=== PATIENT | male | born 1980 | race Caucasian/White ===

== ENCOUNTER 2020-02-25 22:40 | Inpatient (IN) | payer BC ==
[~2020-02-25] VITALS: Ht 170.2 cm; Wt 119.2 kg
--- NOTE | 2020-02-25 22:57 | NUR ---
PT WAS TRANSFERED FROM [facility] AFTER PT WENT TO ER FOR N/V AND ABD PAIN. PT IS A HEAVY DRINKER WITH LAST DRINK YESTERDAY. FLIGHT CREW SAID "PT B/S WAS 365 AT ER AND THAT PT IS BEING TRAFERED TO ER FOR PANCREATITIS AND DKA". PT A//OX 4
[2020-02-25] MEDS ORDERED: REGULAR INSULIN 100 UNITS in SODIUM CHLORIDE 0.9% 99 ML IV PRN (23:00)
[2020-02-25] MEDS ORDERED: SODIUM CHLORIDE 0.9% 1,000ML IVBOLUS ONE (23:00)
[2020-02-25] MEDS ORDERED: MAGNESIUM SULFATE 1 GM, THIAMINE 100 MG, FOLIC ACID 1 MG, MVI ADULT 10 ML in SODIUM CHL... IV ONE (23:00)
[2020-02-25 23:24] LABS: MEAN CORPUSCULAR HEMOGLOBIN 28.6 pg (27.5-34.5); MEAN CORPUSCULAR HGB CONC 31.7 g/dL (33.2-36.2); MEAN PLATELET VOLUME 9.2 fL (7.4-10.4); PLATELET COUNT 296 x10^3/uL (130-400); RED BLOOD COUNT 5.78 x10^6/uL (4.38-5.82); RED CELL DISTRIBUTION WIDTH 15.7 % (9.4-14.8)
[2020-02-25] MEDS ORDERED: PLEASE ENTER ALLERGIES MC SCH (23:30)
[2020-02-25 23:38] LABS: ALBUMIN 3.5 g/dL (3.4-5.0); ANION GAP 27 mmol/L (5-15); CALCIUM 8.7 mg/dL (8.5-10.1); CHLORIDE 97 mmol/L (98-107); CREATININE 1.38 mg/dL (0.7-1.3)
[2020-02-25 23:47] LABS: ALANINE AMINOTRANSFERASE 89 U/L (12-78); ALKALINE PHOSPHATASE 93 U/L (45-117); BILIRUBIN,TOTAL 0.7 mg/dL (0.2-1.0)
[2020-02-26] MEDS ORDERED: DOCUSATE 100 MG CAPSULE PO PRN
[2020-02-26] MEDS ORDERED: REGULAR INSULIN 100 UNITS in SODIUM CHLORIDE 0.9% 99 ML IV PRN
[2020-02-26] MEDS ORDERED: ONDANSETRON 2MG/ML, 2ML IVPush PRN
[2020-02-26] MEDS ORDERED: morphine SULFATE 10 MG/ML, 1ML IVPush PRN
[2020-02-26] MEDS ORDERED: SODIUM CHLORIDE 0.9% 1,000ML IVBOLUS ONE
[2020-02-26] MEDS ORDERED: LORazepam 2 MG/ML, 1ML IVPush ONE
[2020-02-26 00:01] LABS: MD YES
[2020-02-26 00:04] LABS: ANISOCYTOSIS 1+; BAND#(MANUAL) 0.89 x10^3/uL; BANDS%(MANUAL) 5 % (0-7); BASOS#(MANUAL) 0.18 x10^3/uL (0-0.1); BASOS% (MANUAL) 1 % (0-1); LYMPH#(MANUAL) 0.36 x10^3/uL (1-3.4); LYMPHS% (MANUAL) 2 % (22-44); MONOS#(MANUAL) 0.71 x10^3/uL (0.3-2.7); MONOS% (MANUAL) 4 % (2-9); POLYCHROMASIA 1+; SEG#(MANUAL) 15.66 x10^3/uL (1.8-6.8); SEGS% (MANUAL) 88 % (42-75)
[2020-02-26 00:05] LABS: <PLATELET ESTIMATE> ADEQUATE; LARGE PLATELETS 1+
[2020-02-26 00:14] LABS: ACETONE, SERUM Large (80mg/dL) (Negative)
[2020-02-26] MEDS ORDERED: LORazepam 2 MG/ML, 1ML IV PRN ×5 (00:30)
[2020-02-26] MEDS ORDERED: SODIUM BICARB 8.4%, 50ML SYRINGE IVPush ONE (00:30)
[2020-02-26] MEDS ORDERED: SODIUM BICARB 8.4%, 50ML SYRINGE ONE (00:38)
[2020-02-26] MEDS ORDERED: NICOTINE 14MG/24 HR PATCH.TD24 ONE (00:38)
[2020-02-26] MEDS ORDERED: LORazepam 2 MG/ML, 1ML ONE ×2 (00:39→08:34)
[2020-02-26] MEDS: NICOTINE 14MG/24 HR PATCH.TD24 TD SCH (00:46)
[2020-02-26] MEDS ORDERED: LABETALOL 5MG/ML, 20ML ONE (00:48)
[2020-02-26] MEDS: LABETALOL 5MG/ML, 20ML IVPush PRN ×4 (00:50→20:20)
--- NOTE | 2020-02-26 00:59 | NUR ---
PT RESTING IN BED, PT HYPERTENSIVE, PT MEDICATED PER EMAR. PT ON MONITOR, PT VSS.
[2020-02-26] MEDS ORDERED: MORPHINE SULFATE 4 MG/ML, 1ML ONE (01:09)
--- NOTE | 2020-02-26 01:55 | NUR ---
TASK RN: VS UPDATED; PT. PROVIDED WITH MOUTH SWABS PER REQUEST.
--- NOTE | 2020-02-26 04:57 | NUR ---
PT RESTING IN BED, PT MEDICATED PER EMAR. PT ON MONITOR WITH PT VSS
[2020-02-26 05:27] LABS: ANION GAP 23 mmol/L (5-15); CHLORIDE 111 mmol/L (98-107); CREATININE 1.35 mg/dL (0.7-1.3)
[2020-02-26] MEDS: D5%-0.45NACL+KCL 20MEQ 1,000 ML IV SCH ×3 (06:14→19:56)
--- NOTE | 2020-02-26 06:21 | NUR ---
PT RESTING IN BED, PT BLOOD SUGAR 178, PT INSULIN DECREASED AND D5 FLUIDS STARTED. PT ON MONITOR WITH VSS. PT MEDICATED PER MAR
[2020-02-26 06:34] LABS: MICROSCOPIC INDICATED
[2020-02-26] MEDS ORDERED: LORazepam 2 MG/ML, 1ML IVPush PRN (07:30)
[2020-02-26] MEDS: SODIUM CHLORIDE 0.9% 1,000 ML IV SCH ×5 (08:06→19:56)
--- NOTE | 2020-02-26 08:32 | NUR ---
Took report from [facility]. Pt resting in bed calm. checked bs, and gave fluids. no requests at this time.
[2020-02-26] MEDS ORDERED: CHLORDIAZEPOXIDE 25 MG CAPSULE ONE (08:34)
[2020-02-26] MEDS: CHLORDIAZEPOXIDE 25 MG CAPSULE PO SCH ×3 (08:37→20:03)
[2020-02-26] MEDS ORDERED: FAMOTIDINE 20 MG/2 ML IVPush SCH (09:00)
[2020-02-26 09:13] LABS: ANION GAP 13 mmol/L (5-15); CALCIUM 7.7 mg/dL (8.5-10.1); CHLORIDE 115 mmol/L (98-107); CREATININE 1.43 mg/dL (0.7-1.3)
[2020-02-26 12:46] VITALS: BP 149/84
[2020-02-26] MEDS: HYDROcodone/APAP 5/325 TABLET PO PRN ×2 (13:14→19:43)
[2020-02-26 13:26] LABS: ANION GAP 18 mmol/L (5-15); CALCIUM 7.9 mg/dL (8.5-10.1); CHLORIDE 115 mmol/L (98-107); CREATININE 1.28 mg/dL (0.7-1.3)
[2020-02-26] MEDS ORDERED: QUET50TA5 PO (15:25)
[2020-02-26] MEDS ORDERED: METF-734 PO (15:25)
[2020-02-26] MEDS ORDERED: OMEP20CA20 PO (15:25)
[2020-02-26] MEDS ORDERED: MELO15TA24 PO (15:25)
[2020-02-26] MEDS ORDERED: ACAM333T7 PO (15:25)
[2020-02-26] MEDS ORDERED: ROSU10TA26 PO (15:25)
[2020-02-26] MEDS ORDERED: SITA100T PO (15:25)
[2020-02-26] MEDS ORDERED: CLON0.5T20 PO (15:25)
[2020-02-26 16:35] VITALS: BP 190/100
[2020-02-26 17:30] LABS: ANION GAP 12 mmol/L (5-15); CHLORIDE 115 mmol/L (98-107); CREATININE 1.27 mg/dL (0.7-1.3)
[2020-02-26 21:14] LABS: ANION GAP 9 mmol/L (5-15); CALCIUM 8.1 mg/dL (8.5-10.1); CHLORIDE 111 mmol/L (98-107); CREATININE 1.12 mg/dL (0.7-1.3)
[2020-02-27 01:33] LABS: ANION GAP 7 mmol/L (5-15); CALCIUM 8.3 mg/dL (8.5-10.1); CHLORIDE 111 mmol/L (98-107); CREATININE 0.99 mg/dL (0.7-1.3)
[2020-02-27] MEDS: D5%-0.45NACL+KCL 20MEQ 1,000 ML IV SCH (04:53)
[2020-02-27 05:04] LABS: BASOPHILS % (AUTO) 0 % (0-1); EOSINOPHILS % (AUTO) 1 % (1-7); LYMPHOCYTES % (AUTO) 17 % (22-44); MEAN CORPUSCULAR HEMOGLOBIN 28.8 pg (27.5-34.5); MEAN CORPUSCULAR HGB CONC 33.1 g/dL (33.2-36.2); MEAN PLATELET VOLUME 8.7 fL (7.4-10.4); MONOCYTES % (AUTO) 7 % (2-9); NEUTROPHILS % (AUTO) 75 % (42-75); PLATELET COUNT 176 x10^3/uL (130-400); RED BLOOD COUNT 4.78 x10^6/uL (4.38-5.82); RED CELL DISTRIBUTION WIDTH 15.7 % (9.4-14.8)
[2020-02-27 05:10] LABS: ALANINE AMINOTRANSFERASE 45 U/L (12-78); ALBUMIN 2.7 g/dL (3.4-5.0); ANION GAP 9 mmol/L (5-15); CALCIUM 8.6 mg/dL (8.5-10.1); CHLORIDE 111 mmol/L (98-107); CREATININE 0.93 mg/dL (0.7-1.3)
[2020-02-27 05:12] LABS: ALKALINE PHOSPHATASE 50 U/L (45-117); BILIRUBIN,TOTAL 0.6 mg/dL (0.2-1.0); TOTAL PROTEIN 6.4 g/dL (6.4-8.2)
[2020-02-27 05:28] LABS: MD NO
[2020-02-27] MEDS: HYDROcodone/APAP 5/325 TABLET PO PRN ×5 (06:26→20:11)
[2020-02-27] MEDS ORDERED: SODIUM PHOSPHATE 40 MMOL in SODIUM CHLORIDE 0.9% 500 ML IV ONE (07:00)
[2020-02-27] MEDS ORDERED: POTASSIUM CHLORIDE 20 MEQ, MAGNESIUM SULFATE 1 GM, THIAMINE 200 MG, FOLIC ACID 1 MG, MV... IV SCH (07:00)
[2020-02-27] MEDS: POTASSIUM CHLORIDE 20 MEQ, MAGNESIUM SULFATE 1 GM, THIAMINE 200 MG, FOLIC ACID 1 MG, MV... IV SCH (07:23)
[2020-02-27] MEDS: INSULIN GLARGINE 100 UNITS/ML, PEN SQ-INSULIN SCH ×2 (07:30→20:25)
[2020-02-27] MEDS ORDERED: LORazepam 2 MG/ML, 1ML IVPush PRN (07:30)
[2020-02-27] MEDS: POTASSIUM CHLORIDE 20 MEQ TAB.ER.PRT PO SCH ×2 (08:00→16:00)
[2020-02-27] MEDS: INSULIN LISPRO 100 UNITS/ML, PEN SQ-INSULIN SCH ×4 (08:37→20:26)
[2020-02-27 09:46] LABS: ANION GAP 6 mmol/L (5-15); CALCIUM 8.4 mg/dL (8.5-10.1); CHLORIDE 109 mmol/L (98-107); CREATININE 0.83 mg/dL (0.7-1.3)
[2020-02-27] MEDS: CHLORDIAZEPOXIDE 25 MG CAPSULE PO SCH ×3 (10:17→20:10)
[2020-02-27] MEDS: NICOTINE 14MG/24 HR PATCH.TD24 TD SCH (10:17)
[2020-02-27 11:00] VITALS: BP 146/105
[2020-02-27 13:27] VITALS: BP 162/97
[2020-02-27 13:47] LABS: ANION GAP 13 mmol/L (5-15); CALCIUM 8.7 mg/dL (8.5-10.1); CHLORIDE 108 mmol/L (98-107)
[2020-02-27 18:19] LABS: ANION GAP 12 mmol/L (5-15); CALCIUM 8.7 mg/dL (8.5-10.1); CHLORIDE 107 mmol/L (98-107)
[2020-02-27 18:21] LABS: CREATININE 0.76 mg/dL (0.7-1.3)
[2020-02-27 20:23] VITALS: BP 163/95
[2020-02-27 21:51] LABS: ANION GAP 10 mmol/L (5-15); CALCIUM 8.7 mg/dL (8.5-10.1); CHLORIDE 107 mmol/L (98-107); CREATININE 0.83 mg/dL (0.7-1.3)
[2020-02-28] MEDS: HYDROcodone/APAP 5/325 TABLET PO PRN ×2 (01:01→09:37)
[2020-02-28 03:25] VITALS: BP 162/93
[2020-02-28 04:37] LABS: ALBUMIN 2.5 g/dL (3.4-5.0); ANION GAP 9 mmol/L (5-15); CALCIUM 8.4 mg/dL (8.5-10.1); CHLORIDE 107 mmol/L (98-107)
[2020-02-28 04:41] LABS: ALANINE AMINOTRANSFERASE 42 U/L (12-78); ALKALINE PHOSPHATASE 49 U/L (45-117); BILIRUBIN,TOTAL 0.5 mg/dL (0.2-1.0); CREATININE 0.72 mg/dL (0.7-1.3); TOTAL PROTEIN 6.1 g/dL (6.4-8.2)
[2020-02-28 07:17] VITALS: BP 156/97
[2020-02-28] MEDS: CHLORDIAZEPOXIDE 25 MG CAPSULE PO SCH (07:26)
[2020-02-28] MEDS: NICOTINE 14MG/24 HR PATCH.TD24 TD SCH (07:26)
[2020-02-28] MEDS: POTASSIUM CHLORIDE 20 MEQ, MAGNESIUM SULFATE 1 GM, THIAMINE 200 MG, FOLIC ACID 1 MG, MV... IV SCH (07:26)
[2020-02-28] MEDS: INSULIN GLARGINE 100 UNITS/ML, PEN SQ-INSULIN SCH ×2 (07:27→20:06)
[2020-02-28] MEDS: INSULIN LISPRO 100 UNITS/ML, PEN SQ-INSULIN SCH ×4 (07:28→20:06)
[2020-02-28 12:46] VITALS: BP 165/98
[2020-02-28] MEDS ORDERED: CHLORDIAZEPOXIDE 25 MG CAPSULE PO SCH ×2 (15:00)
[2020-02-28] MEDS ORDERED: CHLORDIAZEPOXIDE 10 MG CAPSULE PO PRN (15:00)
[2020-02-28] MEDS ORDERED: CHLORDIAZEPOXIDE 25 MG CAPSULE PO PRN ×3 (15:00)
[2020-02-28] MEDS ORDERED: LORazepam 2 MG/ML, 1ML IV PRN (15:00)
[2020-02-28] MEDS: IBUPROFEN 200 MG TABLET PO PRN (16:44)
[2020-02-28 21:00] VITALS: BP 141/87
[2020-02-29 01:24] VITALS: BP 106/100
[2020-02-29 03:37] LABS: BASOPHILS % (AUTO) 1 % (0-1); EOSINOPHILS % (AUTO) 2 % (1-7); LYMPHOCYTES % (AUTO) 26 % (22-44); MEAN CORPUSCULAR HEMOGLOBIN 28.2 pg (27.5-34.5); MEAN PLATELET VOLUME 8.7 fL (7.4-10.4); MONOCYTES % (AUTO) 8 % (2-9); NEUTROPHILS % (AUTO) 64 % (42-75); PLATELET COUNT 200 x10^3/uL (130-400); RED BLOOD COUNT 4.22 x10^6/uL (4.38-5.82); RED CELL DISTRIBUTION WIDTH 16.3 % (9.4-14.8)
[2020-02-29 03:48] LABS: ANION GAP 8 mmol/L (5-15); CALCIUM 8.7 mg/dL (8.5-10.1); CHLORIDE 103 mmol/L (98-107); CREATININE 0.63 mg/dL (0.7-1.3)
[2020-02-29 04:18] LABS: MD SCAN
[2020-02-29] MEDS ORDERED: INSULIN GLARGINE 100 UNITS/ML, PEN SQ-INSULIN SCH (07:00)
[2020-02-29] MEDS: INSULIN LISPRO 100 UNITS/ML, PEN SQ-INSULIN SCH ×2 (07:14→11:20)
[2020-02-29] MEDS: NICOTINE 14MG/24 HR PATCH.TD24 TD SCH (07:15)
[2020-02-29] MEDS: POTASSIUM CHLORIDE 20 MEQ, MAGNESIUM SULFATE 1 GM, THIAMINE 200 MG, FOLIC ACID 1 MG, MV... IV SCH (07:15)
[2020-02-29] MEDS: IBUPROFEN 200 MG TABLET PO PRN (07:24)
[2020-02-29 07:26] VITALS: BP 157/97
[2020-02-29] MEDS ORDERED: INSU100I11 SQ-INSULIN (10:37)
[2020-02-29] MEDS ORDERED: ALBU18HF INH (10:37)
[2020-02-29] MEDS ORDERED: INSU100I13 SQ-INSULIN (10:37)
[2020-02-29] MEDS ORDERED: CHLORDIAZEPOXIDE 10 MG CAPSULE PO SCH (15:00)
[2020-03-02] MEDS ORDERED: CHLORDIAZEPOXIDE 25 MG CAPSULE PO SCH (15:00)
== END 2020-02-29 14:03 | disposition home or self-care (01) | DRG 438 ==
LOC: ED 23:40 → EDIP 02-26 00:16 → CSU 02-26 11:34 → 4NE 02-27 13:13 → 3N 02-27 22:04
PROVIDERS: ADMIT Family Medicine; ATTEND Internal Medicine
DX: K85.20 Alcohol induced acute pancreatitis without necrosis or infection (principal); E11.10 Type 2 diabetes mellitus with ketoacidosis without coma; G93.41 Metabolic encephalopathy; N17.0 Acute kidney failure with tubular necrosis; F10.231 Alcohol dependence with withdrawal delirium; E86.0 Dehydration; Z20.828 Contact with and (suspected) exposure to other viral communicable diseases; E88.09 Other disorders of plasma-protein metabolism, not elsewhere classified; F17.200 Nicotine dependence, unspecified, uncomplicated; Z72.89 Other problems related to lifestyle
CPT/HCPCS: 36415; 71045; 80048; 80053; 80320; 81001; 82010; 82803; 82962; 83036; 83690; 83735; 84100; 85025; 87081; 87086; 93005; 96374; 96375; 99291; G0378; J1815; J2405; J3411; J3475; J3480; G0480; J2060; J2270; J7030; J7040; U0003